=== PATIENT | female | born 1990 | race Caucasian/White ===

== ENCOUNTER 2018-06-08 18:05 | Emergency (ER) | payer BC, OTHER ==
[2018-06-08 18:30] VITALS: BP 143/88
--- NOTE | 2018-06-08 19:09 | XRAY Report ---
Reason: wrist inj Procedure Date: 06/08/2018 Accession Number: [id number] / [id number] Procedure: XR - Wrist 4 View RT CPT Code: FULL RESULT: EXAM: RIGHT WRIST RADIOGRAPHY EXAM DATE: 06/08/2018 06:55 PM. CLINICAL HISTORY: Wrist injury. Fall on outstretched right hand, wrist pain on medial side. COMPARISON: None. TECHNIQUE: 4 views. FINDINGS: Bones: Normal. No fractures or bone lesions. Joints: Normal. No subluxations. Soft Tissues: No radiopaque foreign bodies. IMPRESSION: 1. No acute osseous abnormalities. RADIA
[2018-06-08] MEDS ORDERED: HYDROcod/ACET 5/325 Prepack 4 PO STA (19:10)
--- NOTE | 2018-06-08 19:10 | ED Physician Documentation ---
PD HPI UPPER EXT INJURY - Stated complaint Stated Complaint: R WRIST INJ - Chief complaint Chief Complaint: Ext Problem - History obtained from History obtained from: Patient - History of Present Illness Location: Right, Wrist Type of injury: Fall Where injury occurred: Street Timing - onset: Today Timing - details: Abrupt onset Review of Systems Constitutional: reports: Reviewed and negative Throat: reports: Reviewed and negative Cardiac: reports: Reviewed and negative Respiratory: reports: Reviewed and negative PD PAST MEDICAL HISTORY - Past Medical History Past Medical History: Yes Cardiovascular: None Respiratory: None Endocrine/Autoimmune: None GI: Cholelithiasis 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 HEENT: None Psych: None Musculoskeletal: Chronic back pain Derm: None - Past Surgical History Past Surgical History: Yes General: Cholecystectomy - Present Medications Home Medications: Ambulatory Orders Medication Instructions Recorded Confirmed HYDROcod/ACETAM 5/325 [Vicodin 1 - 2 ea PO Q6H PRN #15 tablet 12/02/14 12/15/15 5/325] RX: traZODone [Desyrel] 100 mg PO DAILY PRN 12/02/14 12/15/15 - Allergies Allergies/Adverse Reactions: Allergies Allergy/AdvReac Type Severity Reaction Status Date / Time venom-honey bee Allergy Edema Verified 06/08/18 19:04 [bee venom (honey bee)] - Social History Does the pt smoke?: No Smoking Status: Never smoker Does the pt drink ETOH?: Yes Does the pt have substance abuse?: No - Immunizations Immunizations are current?: Yes - POLST Patient has POLST: No PD ED PE NORMAL - Vitals Vital signs reviewed: Yes - General General: Alert and oriented X 3, No acute distress - Neck Neck: Supple, no meningeal sign, No bony TTP - Extremities Extremities: Other (Mild tenderness to palpation of the medial side of the wrist and Distal ulna with normal neurovascular function in the hand. No deformity.) - Neuro Neuro: Alert and oriented X 3, Normal speech Results - Vitals Vitals: Vital Signs - 24 hr 06/08/18 18:18 Temperature 36.2 C L Heart Rate 85 Respiratory 16 Rate Blood Pressure 143/88 H O2 Saturation 98 Oxygen O2 Source Room air - Rads (name of study) R wrist 4v Radiology: EMP read contemporaneously (NAD) PD MEDICAL DECISION MAKING - Sepsis Event Vital Signs: Vital Signs - 24 hr 06/08/18 18:18 Temperature 36.2 C L Heart Rate 85 Respiratory 16 Rate Blood Pressure 143/88 H O2 Saturation 98 Oxygen O2 Source Room air Departure - Departure Disposition: 01 Home, Self Care Clinical Impression: Right wrist sprain Condition: Good Record reviewed to determine appropriate education?: Yes Instructions: ED Sprain Wrist Comments: Your blood pressure was elevated today on check into the emergency department. This does not mean that you have hypertension, it is a common phenomenon to come to the emergency department and have elevated blood pressure. I recommend that you see your primary care physician within the week to have it rechecked when y ou are feeling better. Discharge Date/Time: 06/08/18 19:22
== END 2018-06-08 19:22 | disposition home or self-care (01) ==
LOC: ED 18:05
DX: S63.501A Unspecified sprain of right wrist, initial encounter (principal); R03.0 Elevated blood-pressure reading, without diagnosis of hypertension; W18.30XA Fall on same level, unspecified, initial encounter; Y92.410 Unspecified street and highway as the place of occurrence of the external cause
CPT/HCPCS: 99282; 99283

== ENCOUNTER 2018-06-14 10:53 | Outpatient (CLI) | payer OTHER ==
--- NOTE | 2018-06-14 14:28 | XRAY Report ---
Reason: FOREARM PAIN,RIGHT Procedure Date: 06/14/2018 Accession Number: [id number] / [id number] Procedure: XR - Forearm RT CPT Code: FULL RESULT: EXAM: RIGHT FOREARM RADIOGRAPHY EXAM DATE: 06/14/2018 11:28 AM. CLINICAL HISTORY: FOREARM PAIN,RIGHT. COMPARISON: ELBOW 3 VIEW RT 06/14/2018 11:34 AM. TECHNIQUE: 2 views. FINDINGS: Bones: Normal. No fractures or bone lesions. Joints: Normal. No effusions or subluxations in the visualized wrist or elbow joints. Soft Tissues: Normal. No soft tissue swelling. IMPRESSION: Normal forearm radiography. RAD[facility]
--- NOTE | 2018-06-14 18:42 | XRAY Report ---
Reason: FOREARM PAIN,RIGHT Procedure Date: 06/14/2018 Accession Number: [id number] / [id number] Procedure: XR - Elbow 3 View RT CPT Code: FULL RESULT: EXAM: RIGHT ELBOW RADIOGRAPHY EXAM DATE: 06/14/2018 11:28 AM. CLINICAL HISTORY: FOREARM PAIN,RIGHT. COMPARISON: None. TECHNIQUE: 3 views. FINDINGS: Bones: Normal. No fractures or bone lesions. Joints: Normal. No effusion. No subluxation. Soft Tissues: Normal. No soft tissue swelling. IMPRESSION: Normal elbow radiography. RADIA
== END 2018-06-14 10:54 | disposition home or self-care (01) ==
LOC: DI 10:53
PROVIDERS: ATTEND Nurse Practitioner Primary Care
DX: M79.631 Pain in right forearm (principal)

== ENCOUNTER 2018-08-26 08:00 | Outpatient (CLI) | payer OTHER ==
[2018-08-26 12:52] LABS: BASOPHILS % (AUTO) 0.7 %; EOSINOPHILS # (AUTO) 0.1 10^3/uL (0.0-0.7); EOSINOPHILS % (AUTO) 1.9 %; HGB - HEMOGLOBIN 14.5 g/dL (12.0-16.0); LYMPHOCYTES # (AUTO) 1.7 10^3/uL (1.5-3.5); MEAN CORPUSCULAR HEMOGLOBIN 28.5 pg (27.0-31.0); MEAN CORPUSCULAR VOLUME 83.6 fL (81.0-99.0); MEAN PLATELET VOLUME 11.5 fL (7.9-10.8); MONOCYTES # (AUTO) 0.6 10^3/uL (0.0-1.0); NEUTROPHILS # (AUTO) 4.6 10^3/uL (1.5-6.6); NEUTROPHILS % (AUTO) 64.4 %; PLT - PLATELET COUNT 221 10^3/uL (130-450); RED CELL DISTRIBUTION WIDTH 13.6 % (12.0-15.0); WHITE BLOOD COUNT 7.2 x10^3/uL (4.8-10.8)
[2018-08-26 13:17] LABS: PLATELET MORPHOLOGY RARE GIANT PLATELETS (NORMAL)
== END 2018-08-26 23:59 | disposition home or self-care (01) ==
LOC: LAB.R 08:00
PROVIDERS: ATTEND Nurse Practitioner Primary Care
DX: R10.31 Right lower quadrant pain (principal)
CPT/HCPCS: 84702; 85025; 85651; 86140

== ENCOUNTER 2018-09-04 16:00 | Outpatient (CLI) | payer MEDICAID, OTHER ==
--- NOTE | 2018-09-04 23:33 | Ultrasound Report ---
Reason: RLQ PAIN Procedure Date: 09/04/2018 Accession Number: [id number] / [id number] Procedure: US - Pelvic w/Transvaginal CPT Code: FULL RESULT: EXAM: PELVIC ULTRASOUND EXAM DATE: 09/04/2018 06:03 PM. CLINICAL HISTORY: Right lower quadrant pain. COMPARISON: None. TECHNIQUE: Realtime transabdominal pelvic scan performed to identify the uterus and adnexa and as an overview of other pelvic structures, followed by transvaginal scan to provide greater detail of the uterus and adnexa, with static image documentation. FINDINGS: Uterus: 8.3 x 3.7 x 5.3 cm, volume 85 cc. Anteverted position. Normal overall size and echotexture. Masses: None. Endometrium: 4.0 mm. Normal. Cervix: Unremarkable. Right Ovary: 2.3 x 1.4 x 1.7 cm, volume 2.8 cc. Normal echotexture and blood flow. Left Ovary: 2.5 x 1.9 x 1.8 cm, volume 4.4 cc. Normal echotexture and blood flow. Free Fluid: None. Other: None. IMPRESSION: Normal pelvic ultrasound. RADIA
== END 2018-09-04 16:01 | disposition home or self-care (01) ==
LOC: DI 16:00
PROVIDERS: ATTEND Nurse Practitioner Primary Care
DX: R10.31 Right lower quadrant pain (principal)
CPT/HCPCS: 76830; 76856

== ENCOUNTER 2020-01-01 21:32 | Emergency (ER) | payer MEDICAID, OTHER ==
[2020-01-01 21:43] VITALS: BP 132/78
[2020-01-01] MEDS ORDERED: LORazepam 1 MG TABLET PO STA (21:51)
--- NOTE | 2020-01-01 21:54 | ED Physician Documentation ---
PD HPI URI - Stated complaint Stated Complaint: SOA/FEVER - Chief complaint Chief Complaint: Resp - History obtained from History obtained from: Patient - History of Present Illness Timing - onset: How many days ago (3) Timing duration: Days (3) Timing details: Gradual onset Pain level max: 0 Pain level now: 0 Associated symptoms: Fever (no fever, tmax 99), Dry cough, Dyspnea (feels short of breath). No: Sore throat, Hemoptysis, Chest pain Contributing factors: Sick contact Improves by: Rest Worsened by: Breathing Recently seen: Not recently seen - Additional information Additional information: Patient is not , , or trying to become Review of Systems Ten Systems: 10 systems reviewed and negative Constitutional: denies: Fever, Chills Respiratory: denies: Cough GI: denies: Abdominal Pain, Vomiting, Diarrhea Skin: denies: Rash Musculoskeletal: denies: Neck pain, Back pain Neurologic: denies: Headache PD PAST MEDICAL HISTORY - Past Medical History Cardiovascular: None Respiratory: None Endocrine/Autoimmune: None GI: Cholelithiasis 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 HEENT: None Psych: None Musculoskeletal: Chronic back pain Derm: None - Past Surgical History Past Surgical History: Yes General: Cholecystectomy - Present Medications Home Medications: Ambulatory Orders Medication Instructions Recorded Confirmed HYDROcod/ACETAM 5/325 [Vicodin 1 - 2 ea PO Q6H PRN #15 tablet 12/02/14 12/15/15 5/325] traZODone [Desyrel] 100 mg PO DAILY PRN 12/02/14 12/15/15 Albuterol Sulf [Ventolin Hfa 1 - 2 puffs INH Q4HR PRN #1 inhaler 01/01/20 Inhaler] - Allergies Allergies/Adverse Reactions: Allergies Allergy/AdvReac Type Severity Reaction Status Date / Time venom-honey bee Allergy Edema Verified 06/08/18 19:04 [bee venom (honey bee)] - Social History Does the pt smoke?: No Smoking Status: Never smoker Does the pt drink ETOH?: Yes Does the pt have substance abuse?: No - Immunizations Immunizations are current?: Yes - POLST Patient has POLST: No PD ED PE NORMAL - Vitals Vital signs reviewed: Yes - General General: Alert and oriented X 3, Well developed/nourished, Other (Appears very anxious, tachypneic) - HEENT HEENT: Ears normal, Moist mucous membranes, Pharynx benign - Neck Neck: Supple, no meningeal sign - Cardiac Cardiac: RRR, Strong equal pulses - Respiratory Respiratory: No respiratory distress, Clear bilaterally - Abdomen Abdomen: Soft, Non tender, Non distended - Derm Derm: Warm and dry, No rash - Extremities Extremities: No edema, No calf tenderness / cord - Neuro Neuro: Alert and oriented X 3 - Psych Psych: Normal mood, Normal affect Results - Vitals Vitals: Vital Signs - 24 hr 01/01/20 21:39 Temperature 36.3 C L Heart Rate 100 Respiratory 40 H Rate Blood Pressure 132/78 H O2 Saturation 99 Oxygen O2 Source Room air - Rads (name of study) Chest x-ray Radiology: Prelim report reviewed, EMP read contemporaneously, See rad report (No acute disease) PD MEDICAL DECISION MAKING - ED course Complexity details: reviewed results, re-evaluated patient, considered differential, d/w patient ED course: Patient is very well-appearing, nontoxic. Afebrile. No hypoxia. Tachypnea resolved with Ativan. She states that her chest still felt tight and was given a dose of albuterol. She feels better after this. Will prescribe an inhaler for home. Coronavirus testing performed. Patient counseled regarding signs and symptoms for which I believe and urgent re-evaluation would be necessary. Patient with good understanding of and agreement to plan and is comfortable going home at this time This document was made in part using voice recognition software. While efforts are made to proofread this document, sound alike and grammatical errors may occur. Departure - Departure Disposition: 01 Home, Self Care Clinical Impression: Panic attack Upper respiratory tract infection Qualifiers: URI type: unspecified URI Qualified Code(s): J06.9 - Acute upper respiratory infection, unspecified Condition: Good Instructions: ED Viral Syndrome Follow-Up: Your,doctor in 1 week [Other] Prescriptions: Albuterol Sulf [Ventolin Hfa Inhaler] 1 - 2 puffs INH Q4HR PRN #1 inhaler PRN Reason: Shortness Of Air/Wheezing Comments: Return if you worsen. Use the inhaler as needed. Your coronavirus testing will be resulted in 24 to 48 hours. Do not return to work or school until your symptoms have subsided for at least 24 hours. cdc.gov/coronavirus/2019-ncov/community/arpwghen-wqmrvyjo-crofxkvo.html Employers should not require a positive COVID-19 test result or a healthcare providers note for employees who are sick to validate their illness, qualify for sick leave, or to return to work. Healthcare provider offices and medical facilities may be extremely busy and not able to provide such documentation in a timely manner.
[2020-01-01] MEDS ORDERED: ALBUTEROL 1 PUFF INH STA (22:27)
--- NOTE | 2020-01-01 23:05 | XRAY Report ---
Reason: cough Procedure Date: 01/01/2020 Accession Number: [id number] / [id number] Procedure: XR - Chest 1 View X-Ray CPT Code: 77569 Final Report FULL RESULT: EXAM: CHEST RADIOGRAPHY EXAM DATE: 01/01/2020 10:31 PM. CLINICAL HISTORY: Cough. COMPARISON: CHEST 2 VIEW PA/LAT 12/15/2015 5:07 PM. TECHNIQUE: 1 view. FINDINGS: Lungs/Pleura: No focal opacities evident. No pleural effusion. No pneumothorax. Mediastinum: Within exam limitations, the cardiomediastinal contour is normal. Other: None. IMPRESSION: Normal single view chest. RADIA
== END 2020-01-01 22:48 | disposition home or self-care (01) ==
LOC: ED 21:32
DX: F41.0 Panic disorder [episodic paroxysmal anxiety] (principal); J06.9 Acute upper respiratory infection, unspecified
CPT/HCPCS: 71045; 87635; 94640; 94664; 99284; J8499; 81599

== ENCOUNTER 2021-02-01 10:18 | Emergency (ER) | payer MEDICAID, OTHER ==
[2021-02-01 10:46] LABS: BILIRUBIN,URINE NEGATIVE (NEGATIVE); GLUCOSE, URINE (UA) NEGATIVE (NEGATIVE); KETONES,URINE (UA) NEGATIVE (NEGATIVE); LEUKOCYTE ESTERASE, URINE MODERATE (NEGATIVE); NITRITE,URINE NEGATIVE (NEGATIVE); OCCULT BLOOD,URINE LARGE (NEGATIVE); PROTEIN,URINE NEGATIVE (NEGATIVE); UROBILINOGEN,URINE 0.2 (NORMAL) E.U./dL (NORMAL)
[2021-02-01 10:48] LABS: CLARITY,URINE HAZY (CLEAR); HCG UR QUAL NEGATIVE
[2021-02-01 11:04] LABS: BACTERIA,URINE Few /HPF (None Seen); RBC,URINE TNTC /HPF (0-5); SQUAMOUS EPITHELIAL CELL,UR RARE Squamous (<= Few); WBC CLUMPS,URINE PRESENT; WBC,URINE >25 /HPF (0-5)
[2021-02-01] MEDS ORDERED: CEFPODOXIME PROXETIL 100 MG TABLET PO STA (11:04)
--- NOTE | 2021-02-01 11:04 | ED Physician Documentation ---
History of Present Illness - Stated complaint Stated Complaint: FEMALE - Chief complaint Chief Complaint: UTI - History obtained from History obtained from: Patient Review of Systems Constitutional: denies: Fever GI: reports: Abdominal Pain. 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 HEENT: None Psych: None Musculoskeletal: Chronic back pain Derm: None - Past Surgical History Past Surgical History: Yes General: Cholecystectomy - Present Medications Home Medications: Ambulatory Orders Medication Instructions Recorded Confirmed HYDROcod/ACETAM 5/325 [Vicodin 1 - 2 ea PO Q6H PRN #15 tablet 12/02/14 12/15/15 5/325] traZODone [Desyrel] 100 mg PO DAILY PRN 12/02/14 12/15/15 Albuterol Sulf [Ventolin Hfa 1 - 2 puffs INH Q4HR PRN #1 inhaler 01/01/20 Inhaler] Cefpodoxime Proxetil [Vantin] 100 mg PO Q12H #14 tablet 02/01/21 - Allergies Allergies/Adverse Reactions: Allergies Allergy/AdvReac Type Severity Reaction Status Date / Time venom-honey bee Allergy Edema Verified 02/01/21 10:23 [bee venom (honey bee)] - Social History Does the pt smoke?: No Smoking Status: Never smoker Does the pt drink ETOH?: Yes Does the pt have substance abuse?: No - Immunizations Immunizations are current?: Yes - POLST Patient has POLST: No PD ED PE NORMAL - Vitals Vital signs reviewed: Yes - General General: Alert and oriented X 3, No acute distress, Well developed/nourished - HEENT HEENT: Atraumatic, PERRL, EOMI - Abdomen Abdomen: Non tender, Non distended, Other (Discomfort with suprapubic palpation) - Back Back: Other (Bilateral CVA discomfort with palpation) - Derm Derm: Normal color - Extremities Extremities: No deformity - Neuro Neuro: Alert and oriented X 3 - Psych Psych: Normal mood, Normal affect Results - Vitals Vitals: Vital Signs - 24 hr 02/01/21 10:23 Temperature 36.3 C L Heart Rate 82 Respiratory 16 Rate Blood Pressure 128/78 O2 Saturation 100 Oxygen O2 Source Room air - Labs Labs: Laboratory Tests 02/01/21 02/01/21 10:30 10:30 Urine Color YELLOW Urine Clarity HAZY Urine pH 6.0 Ur Specific [place] <=1.005 Urine Protein NEGATIVE Urine Glucose (UA) NEGATIVE Urine Ketones NEGATIVE Urine Occult Blood LARGE H Urine Nitrite NEGATIVE Urine Bilirubin NEGATIVE Urine Urobilinogen 0.2 (NORMAL) Ur Leukocyte Esterase MODERATE H Urine HCG, Qual NEGATIVE PD MEDICAL DECISION MAKING - ED course ED course: 30-year-old woman presents with uncomplicated UTI. Antibiotics prescribed. Return precautions given. She will follow up with her primary doctor Departure - Departure Disposition: Home, Self Care Clinical Impression: Urinary tract infection Condition: Good Instructions: ED UTI Cystitis Female Prescriptions: Cefpodoxime Proxetil [Vantin] 100 mg PO Q12H #14 tablet Comments: You were seen in the emergency department for urinary tract infection. Take your antibiotics as prescribed and follow-up with your primary doctor. Return to the emergency department if you experience any new or worsening symptoms or have other concerns.
--- OUTSIDE RECORDS SUMMARY | 2021-02-01 11:04 | EXTERNAL MEDICAL SUMMARY RPT | Continuity of Care Document ---
:1990 Demographics Phone Unavailable Preferred Language Unknown Marital Status Unknown Religion Affiliation Unknown Race Unknown Ethnic Group Unknown Author Organization [facility] Address [address] [place] [address] Phone Allergies Encounters Medications Problems Results
[2021-02-01 11:17] VITALS: BP 134/83
== END 2021-02-01 11:21 | disposition home or self-care (01) ==
LOC: ED 10:18
DX: N39.0 Urinary tract infection, site not specified (principal)
CPT/HCPCS: 81001; 81025; 87086; 99283; A9270